=== PATIENT | female | born 1995 | race Caucasian/White ===

== ENCOUNTER 2017-05-11 10:50 | Emergency (ER) | payer OTHER | END 2017-05-11 11:50 | disposition home or self-care (01) | LOC: ER1 10:50 | DX: O99.89 Other specified diseases and conditions complicating pregnancy, childbirth and the puerperium (principal); D22.5 Melanocytic nevi of trunk; Z3A.24 24 weeks gestation of pregnancy | CPT/HCPCS: 99283 ==